=== PATIENT | female | born 1995 | race Caucasian/White ===

== ENCOUNTER 2020-04-18 02:10 | Emergency (ER) | payer MEDICAID ==
[2020-04-18] MEDS ORDERED: IBUPROFEN 400MG TABLET PO ONE (05:00)
[2020-04-18 05:06] LABS: CLARITY URINE TURBID (CLEAR); COLOR URINE DARK YELLOW (YELLOW); KETONES URINE TRACE (NEGATIVE); LEUKOCYTE ESTERASE URINE 3+ (NEGATIVE); NITRITE URINE POSITIVE (NEGATIVE); OCCULT BLOOD URINE 3+ (NEGATIVE); PROTEIN URINE 3+ (NEGATIVE)
[2020-04-18] MEDS ORDERED: ONDANSETRON 4MG ODT PO ONE (05:30)
[2020-04-18 06:43] VITALS: BP 116/68
== END 2020-04-18 06:45 | disposition home or self-care (01) ==
LOC: ER 02:10
DX: N39.0 Urinary tract infection, site not specified (principal)
CPT/HCPCS: 81003; 81025; 87077; 87086; 87186; 99283; Q0162

== ENCOUNTER 2021-02-15 18:20 | Emergency (ER) | payer MEDICAID, OTHER ==
[~2021-02-15] VITALS: Ht 154.9 cm; Wt 47.0 kg
[2021-02-15] MEDS ORDERED: IBUPROFEN 600MG TABLET PO NR (18:45)
[2021-02-15] MEDS ORDERED: DIPHENHYDRAMINE 12.5MG/5ML UDC PO NR (18:45)
[2021-02-15] MEDS ORDERED: METOCLOPRAMIDE HCL 10MG TABLET PO NR (18:45)
[2021-02-15] MEDS ORDERED: ACETAMINOPHEN 325MG TABLET PO ONE (19:00)
[2021-02-15] MEDS ORDERED: SUMA50TA16 MT (20:03)
[2021-02-15] MEDS ORDERED: IBUP-2029 MT (20:03)
[2021-02-15 20:15] VITALS: BP 130/66
== END 2021-02-15 20:15 | disposition home or self-care (01) ==
LOC: ER 18:20
DX: G43.909 Migraine, unspecified, not intractable, without status migrainosus (principal)
CPT/HCPCS: 81025; 99284; J8597; Q0163

== ENCOUNTER 2022-02-09 13:28 | Emergency (ER) | payer MEDICAID, OTHER ==
[~2022-02-09] VITALS: Ht 154.9 cm; Wt 48.0 kg
[~2022-02-09 13:28] MED LIST: IBUP-2029 MT; SUMA50TA16 MT
[2022-02-09 13:32] VITALS: BP 125/80
== END 2022-02-09 19:30 | disposition left against medical advice (07) ==
LOC: ER 13:37
DX: Z53.21 Procedure and treatment not carried out due to patient leaving prior to being seen by health care provider (principal)
CPT/HCPCS: Z7610 ×4

== ENCOUNTER 2023-08-30 16:54 | Emergency (ER) | payer MEDICAID, OTHER ==
[~2023-08-30] VITALS: Ht 160 cm; Wt 44.0 kg
[2023-08-30 16:55] VITALS: O2SAT 99
[2023-08-30 18:36] LABS: DIFFERENTIAL COMMENT 1; HEMATOCRIT. 41.8 % (36.0-48.0); HEMOGLOBIN. 14.2 g/dL (12.0-16.0); MEAN CORPUSCULAR HEMOGLOBIN 31.9 pg (28.0-32.0); MEAN CORPUSCULAR HGB CONC 33.9 g/dL (31.0-37.0); MEAN CORPUSCULAR VOLUME 94.1 fL (81.0-99.0); MEAN PLATELET VOLUME 8.6 fl (7.4-10.4); PLATELET 241 x1000/uL (130-400); RED BLOOD CELL COUNT 4.44 mill/uL (4.2-5.4); RED CELL DISTRIBUTION WIDTH 12.8 % (11.6-14.6); WHITE BLOOD COUNT 13.7 x1000/uL (4.5-11.0)
[2023-08-30] MEDS: ONDANSETRON HCL 4MG/2ML INJ IV ONE (18:41)
[2023-08-30] MEDS: FAMOTIDINE 20MG/2ML VIAL IV ONE (18:41)
[2023-08-30] MEDS: ACETAMINOPHEN 325MG TABLET PO ONE (18:41)
[2023-08-30 18:42] LABS: CHLORIDE 103 mEq/L (98-107); POTASSIUM 3.4 mEq/L (3.5-5.1); SODIUM 138 mEq/L (136-145)
[2023-08-30] MEDS: LACTATED RINGERS 1,000 ML IV SCH (18:42)
[2023-08-30 18:43] LABS: CALCIUM 8.8 mg/dL (8.7-10.4); CARBON DIOXIDE 21 mEq/L (21-32)
[2023-08-30 18:46] LABS: HCG SCREEN NEGATIVE
[2023-08-30 18:48] LABS: CREATININE 0.7 mg/dL (0.6-1.0); GLUCOSE 114 mg/dL (70-105); UREA NITROGEN BLOOD 12 mg/dL (9-23)
[2023-08-30 18:50] LABS: ALANINE AMINOTRANSFERASE 12 IU/L (10-49); ALBUMIN 4.5 g/dL (3.2-4.8); ASPARTATE AMINOTRANSFERASE 21 IU/L (<34); BILIRUBIN TOTAL 0.8 mg/dL (0.1-1.0); PROTEIN TOTAL 7.1 g/dL (6.0-8.3)
[2023-08-30] MEDS ORDERED: ONDA4TAB11 PO (20:30)
[2023-08-30 20:41] VITALS: BP 102/72; PULSE 96; RESP 20; TEMP 97.6
[2023-08-30 21:52] LABS: PLATELET ESTIMATE NORMAL
== END 2023-08-30 20:55 | disposition home or self-care (01) ==
LOC: ER 16:54
DX: R11.2 Nausea with vomiting, unspecified (principal); R10.9 Unspecified abdominal pain; G43.909 Migraine, unspecified, not intractable, without status migrainosus
CPT/HCPCS: 99285; 74176; 96374; 96375; 80053; 82962; 84703; 83690; 85025; 36415; J3490; J2405